=== PATIENT | male | born 1940 | race Caucasian/White ===

== ENCOUNTER → 2017-05-01 | Outpatient (CLI) | payer MEDICARE ==
[~2017-05-01] MED LIST: AMLO10TA2 PO; ASPI-496 PO; BENA40TA2 PO; CARV-39 PO; CETI10TA24 PO; HYDR25TA6 PO; L.AC1CAP6 PO; MULT-187 PO; MULT-26; MULT1TAB60 PO; OMEP-110 PO; POTA10CA PO; POTA99TA8 PO; PRED10TA PO; SIMV40TA PO; TADA20TA PO; VITA1TAB3 PO; VITA1TAB43 PO; ZOLP5TAB6 PO
== END | disposition home or self-care (01) ==
LOC: PETCFH 09:11
PROVIDERS: ATTEND Otolaryngology
DX: I25.10 Atherosclerotic heart disease of native coronary artery without angina pectoris (principal); N20.0 Calculus of kidney; K80.20 Calculus of gallbladder without cholecystitis without obstruction; R91.8 Other nonspecific abnormal finding of lung field; C32.0 Malignant neoplasm of glottis; K13.4 Granuloma and granuloma-like lesions of oral mucosa; J30.0 Vasomotor rhinitis
CPT/HCPCS: 78815; A9552

== ENCOUNTER → 2017-05-10 | Outpatient (CLI) | payer MEDICARE ==
[~2017-05-10] MED LIST changes: +CHOL2000 PO; +ZOLP10TA5 PO
[2017-05-10 11:16] LABS: ALANINE AMINOTRANSFERASE 40 U/L (12-78); ALBUMIN 4.1 g/dL (3.4-5.0); ANION GAP 4 mmol/L (5-15); CHLORIDE 106 mmol/L (98-107); CREATININE 1.07 mg/dL (0.7-1.3)
[2017-05-10 11:18] LABS: ALKALINE PHOSPHATASE 48 U/L (45-117); BILIRUBIN,TOTAL 0.8 mg/dL (0.2-1.0); TOTAL PROTEIN 7.9 g/dL (6.4-8.2)
== END ==
LOC: STAR 10:02
PROVIDERS: ATTEND Internal Medicine
DX: Z01.818 Encounter for other preprocedural examination (principal); R91.8 Other nonspecific abnormal finding of lung field; R94.31 Abnormal electrocardiogram [ECG] [EKG]
CPT/HCPCS: 36415; 80053; 93005

== ENCOUNTER 2017-05-17 08:17 | Day surgery (SDC) | payer MEDICARE ==
[~2017-05-17] VITALS: Ht 185.4 cm; Wt 10.8 kg
[2017-05-17] MEDS ORDERED: FENTANYL PF 250 MCG/5ML ONE (08:57)
[2017-05-17 08:59] VITALS: BP 113/70
[2017-05-17] MEDS ORDERED: LACTATED RINGERS 1,000 ML IV SCH (09:15)
[2017-05-17] MEDS ORDERED: MIDAZOLAM 1 MG/ML, 2ML ONE (11:05)
[2017-05-17] MEDS ORDERED: OXYcodone 5 MG/5 ML ORAL.SOL UDC PO PRN (13:30)
[2017-05-17] MEDS ORDERED: LABETALOL 5MG/ML, 20ML IV PRN (13:30)
[2017-05-17] MEDS ORDERED: ACETAMINOPHEN 325 MG TABLET PO PRN (13:30)
[2017-05-17] MEDS ORDERED: PROMETHAZINE 25 MG/ML, 1ML IV PRN (13:30)
[2017-05-17] MEDS ORDERED: ALBUTEROL SULFATE 2.5 MG/3 ML NPPB PRN (13:30)
[2017-05-17] MEDS ORDERED: HYDROmorphone 1 MG/ML, 1ML IV PRN (13:30)
[2017-05-17] MEDS ORDERED: FENTANYL PF 100 MCG/2ML IV PRN (13:30)
[2017-05-17] MEDS ORDERED: hydrALAzine 20 MG/ML, 1ML IV PRN (13:30)
[2017-05-17] MEDS ORDERED: PROPOFOL 10 MG/ML, 20ML ONE (16:16)
[2017-05-17] MEDS ORDERED: GLYCOPYRROLATE 0.2MG/1ML, 5ML ONE (16:16)
[2017-05-17] MEDS ORDERED: ONDANSETRON 2MG/ML, 2ML ONE (16:16)
[2017-05-17] MEDS ORDERED: SUCCINYLCHOLINE 20 MG/ML, 10ML ONE (16:16)
[2017-05-17] MEDS ORDERED: DEXAMETHASONE 4 MG/ML, 5ML ONE (16:16)
[2017-05-17] MEDS ORDERED: ROCURONIUM 10 MG/ML,10ML ONE (16:16)
[2017-05-17] MEDS ORDERED: NEOSTIGMINE 1 MG/ML, 10ML ONE (16:16)
== END 2017-05-17 15:05 ==
LOC: OUT 08:17
PROVIDERS: ATTEND Internal Medicine
DX: R91.8 Other nonspecific abnormal finding of lung field (principal); I10 Essential (primary) hypertension; Z88.0 Allergy status to penicillin; Z88.8 Allergy status to other drugs, medicaments and biological substances; Z79.82 Long term (current) use of aspirin
CPT/HCPCS: 31623; 31624; 31627; 31628; 31629; 71045; 76001; 88112; 88172; 88173; 88305; J0330; J1100; J2250; J2405; J2704; J2710; J3010; J7120; J3490

== ENCOUNTER → 2017-09-13 | Outpatient (CLI) | payer MEDICARE | LOC: CFH 11:39 | PROVIDERS: ATTEND Internal Medicine | DX: R91.8 Other nonspecific abnormal finding of lung field (principal) | CPT/HCPCS: 71250 ==

== ENCOUNTER → 2018-07-24 | Outpatient (CLI) | payer MEDICARE, OTHER ==
[~2018-07-24] MED LIST changes: -AMLO10TA2 PO; +AMLO10TA8 PO; -BENA40TA2 PO; +BENA40TA3 PO
== END | disposition home or self-care (01) ==
LOC: PETCFH 13:40
PROVIDERS: ATTEND Internal Medicine Geriatric Medicine
DX: R91.8 Other nonspecific abnormal finding of lung field (principal); C76.0 Malignant neoplasm of head, face and neck
CPT/HCPCS: 78815; A9552

== ENCOUNTER → 2020-01-22 | Outpatient (CLI) | payer OTHER ==
[~2020-01-22] MED LIST changes: -CETI10TA24 PO; +CETI10TA76 PO; +MULT-449 PO; -MULT1TAB60 PO
== END | disposition home or self-care (01) ==
LOC: PETCFH 12:15
PROVIDERS: ATTEND Internal Medicine
DX: R91.8 Other nonspecific abnormal finding of lung field (principal); K80.20 Calculus of gallbladder without cholecystitis without obstruction; N28.1 Cyst of kidney, acquired
CPT/HCPCS: 78815; A9552